=== PATIENT | male | born 1940 | race Caucasian/White ===

== ENCOUNTER 2018-01-15 22:16 | Emergency (ER) | payer OTHER, BC ==
[2018-01-15 23:36] LABS: ADD MAN DIFF? NO
[2018-01-15 23:42] LABS: BASOPHIL # 0.1 10^3/ul (0.0-0.1); BASOPHILS % 0.9 % (0.0-2.0); EOSINOPHILS # 0.7 10^3/ul (0.0-0.5); EOSINOPHILS % 6.8 % (0.0-7.0); HEMATOCRIT 36.5 % (42.0-52.0); LYMPHOCYTES # 2.1 10^3/ul (0.8-2.9); LYMPHOCYTES % 21.3 % (15.0-51.0); MEAN CORPUSCULAR HEMOGLOBIN 27.2 pg (29.0-33.0); MEAN CORPUSCULAR HGB CONC 32.9 g/dl (32.0-37.0); MEAN CORPUSCULAR VOLUME 82.8 fl (82.0-101.0); MEAN PLATELET VOLUME 9.5 fl (7.4-10.4); MONOCYTE # 0.8 10^3/ul (0.3-0.9); MONOCYTES % 8.3 % (0.0-11.0); NEUTROPHIL # 6.1 10^3/ul (1.6-7.5); NEUTROPHILS % 62.2 % (39.0-77.0); PLATELET COUNT 269 10^3/UL (140-415); RED BLOOD COUNT 4.41 10^6/ul (4.70-6.10); RED CELL DISTRIBUTION WIDTH 16.9 % (11.5-14.5)
[2018-01-15 23:42] LABS: WHITE BLOOD COUNT 9.9 10^3/ul (4.8-10.8)
[2018-01-15] MEDS: ONDANSETRON 4 MG INJ IV (23:46)
[2018-01-15] MEDS: morphine 4 MG/ML VIAL IV (23:48)
[2018-01-16 00:16] LABS: TROPONIN-I < 0.012 ng/ml (0.00-0.12)
[2018-01-16 00:21] LABS: ANION GAP 16 (8-16); BLOOD UREA NITROGEN 14 mg/dl (7-20); CALCIUM 9.8 mg/dl (8.4-10.2); CARBON DIOXIDE 29 mmol/L (21-31); CHLORIDE 104 mmol/L (97-110); CREATININE 0.76 mg/dl (0.61-1.24); GLUCOSE 120 mg/dl (70-220); POTASSIUM 3.8 mmol/L (3.5-5.1); SODIUM 145 mmol/L (135-144)
[2018-01-16 05:37] LABS: TROPONIN-I < 0.012 ng/ml (0.00-0.12)
[2018-01-16 06:30] LABS: TROPONIN-I < 0.012 ng/ml (0.00-0.12)
[2018-01-16 06:38] LABS: CK INDEX 1.2; CREATINE KINASE 34 IU/L (23-200)
== END 2018-01-16 06:30 | disposition home or self-care (01) ==
LOC: E/R 01-16 06:30
DX: R07.9 Chest pain, unspecified (principal); I10 Essential (primary) hypertension; E11.9 Type 2 diabetes mellitus without complications; Z98.61 Coronary angioplasty status; Z79.82 Long term (current) use of aspirin; Z79.84 Long term (current) use of oral hypoglycemic drugs
CPT/HCPCS: 36415; 71045; 80048; 82550; 82553; 84484; 85025; 93005; 96374; 96375; 99285-25

== ENCOUNTER 2018-09-18 13:27 | Observation (INO) | payer OTHER ==
[2018-09-18 14:33] LABS: ADD MAN DIFF? NO
[2018-09-18 14:38] LABS: BASOPHIL # 0.1 10^3/ul (0.0-0.1); BASOPHILS % 0.8 % (0.0-2.0); EOSINOPHILS # 0.5 10^3/ul (0.0-0.5); EOSINOPHILS % 5.7 % (0.0-7.0); HEMOGLOBIN 14.2 g/dl (14.0-18.0); LYMPHOCYTES # 1.8 10^3/ul (0.8-2.9); LYMPHOCYTES % 19.3 % (15.0-51.0); MEAN CORPUSCULAR HEMOGLOBIN 27.6 pg (29.0-33.0); MEAN CORPUSCULAR VOLUME 83.5 fl (82.0-101.0); MEAN PLATELET VOLUME 9.5 fl (7.4-10.4); MONOCYTES % 10.8 % (0.0-11.0); NEUTROPHIL # 5.9 10^3/ul (1.6-7.5); NEUTROPHILS % 62.9 % (39.0-77.0); PLATELET COUNT 302 10^3/UL (140-415); RED BLOOD COUNT 5.15 10^6/ul (4.70-6.10); RED CELL DISTRIBUTION WIDTH 14.7 % (11.5-14.5)
[2018-09-18 14:38] LABS: WHITE BLOOD COUNT 9.5 10^3/ul (4.8-10.8)
[2018-09-18 14:56] LABS: ANION GAP 13 (5-13); BLOOD UREA NITROGEN 25 mg/dl (7-20); CALCIUM 10.8 mg/dl (8.4-10.2); CARBON DIOXIDE 28 mmol/L (21-31); CHLORIDE 99 mmol/L (97-110); CREATININE 1.09 mg/dl (0.61-1.24); GLUCOSE 119 mg/dl (70-220); POTASSIUM 5.1 mmol/L (3.5-5.1); SODIUM 140 mmol/L (135-144)
[2018-09-18 15:07] LABS: TROPONIN-I < 0.012 ng/ml (0.000-0.120)
[2018-09-18] MEDS: IBUPROFEN 800 MG TAB PO (16:03)
[2018-09-18] MEDS ORDERED: ACETAMINOPHEN 325 MG TAB PO ×2 (16:30)
[2018-09-18] MEDS ORDERED: HYDROCODONE/APAP (5/325) TAB PO (16:30)
[2018-09-18] MEDS ORDERED: NACL 0.9% 3 ML SYG IV (16:30)
[2018-09-18] MEDS ORDERED: ONDANSETRON 4 MG INJ IV ×2 (16:30)
[2018-09-18] MEDS ORDERED: ALBUTEROL/IPRATROPIUM (NEB) 3 ML AMP HHN (17:00)
[2018-09-18] MEDS: SOD CHLORIDE 0.9% 1,000 ML IV (17:00)
[2018-09-18] MEDS ORDERED: LABETALOL HCL 20MG INJ IV (17:00)
[2018-09-18] MEDS ORDERED: NITROGLYCERIN (SL) 0.4 MG TAB (17:04)
[2018-09-18] MEDS: NITROGLYCERIN (SL) 0.4 MG TAB SL (17:14)
[2018-09-18] MEDS: morphine 2 MG INJ IV ×2 (17:17→21:28)
[2018-09-18] MEDS: ALPRAZOLAM 1 MG TAB PO (17:20)
[2018-09-18] MEDS: INSULIN ASPART [NOVOLOG] 3 ML PEN SC ×2 (18:00→21:00)
[2018-09-18] MEDS: METOPROLOL 100 MG TAB PO (18:36)
[2018-09-18] MEDS: AMLODIPINE 10 MG TAB PO (18:36)
[2018-09-18] MEDS ORDERED: GLUCAGON 1 MG INJ IM (19:00)
[2018-09-18] MEDS ORDERED: GLUCOSE GEL 15 GRAM TUBE PO ×2 (19:00)
[2018-09-18] MEDS ORDERED: GLUCOSE GEL 15 GRAM TUBE BUCCAL (19:00)
[2018-09-18] MEDS ORDERED: DEXTROSE 50% 50 ML SYRINGE IV ×2 (19:00)
[2018-09-18 19:50] LABS: CREATINE KINASE 34 IU/L (23-200)
[2018-09-18 20:04] LABS: CK INDEX 1.7; CK-MB 0.57 ng/ml (0.0-2.4); TROPONIN-I < 0.012 ng/ml (0.000-0.120)
[2018-09-18] MEDS ORDERED: HEPARIN 5,000 UNIT/0.5 ML VIAL (21:06)
[2018-09-18] MEDS: GABAPENTIN 300 MG CAP PO (21:23)
[2018-09-18] MEDS: QUETIAPINE 100 MG TAB PO (21:24)
[2018-09-18] MEDS: ATORVASTATIN 80 MG TAB PO (21:24)
[2018-09-18] MEDS: FAMOTIDINE 20 MG TAB PO (21:24)
[2018-09-18] MEDS: LAMOTRIGINE 100 MG TAB PO (21:27)
[2018-09-18] MEDS: HEPARIN 5,000 UNIT/1 ML VIAL SC (22:00)
[2018-09-18] MEDS: LIDOCAINE/MYLANTA 40 ML BTL PO (22:07)
[2018-09-19 00:18] LABS: TROPONIN-I < 0.012 ng/ml (0.000-0.120)
[2018-09-19] MEDS: ACCU-CHEK XX (02:00)
[2018-09-19 02:57] LABS: CREATINE KINASE 30 IU/L (23-200)
[2018-09-19 03:06] LABS: CK-MB 0.43 ng/ml (0.0-2.4)
[2018-09-19] MEDS: HEPARIN 5,000 UNIT/1 ML VIAL SC ×2 (06:00→13:46)
[2018-09-19 07:07] LABS: ADD MAN DIFF? NO
[2018-09-19 07:13] LABS: BASOPHIL # 0.1 10^3/ul (0.0-0.1); EOSINOPHILS # 0.5 10^3/ul (0.0-0.5); EOSINOPHILS % 6.7 % (0.0-7.0); HEMATOCRIT 41.3 % (42.0-52.0); HEMOGLOBIN 13.3 g/dl (14.0-18.0); MEAN CORPUSCULAR HGB CONC 32.2 g/dl (32.0-37.0); MEAN CORPUSCULAR VOLUME 83.9 fl (82.0-101.0); MEAN PLATELET VOLUME 9.6 fl (7.4-10.4); MONOCYTE # 0.9 10^3/ul (0.3-0.9); MONOCYTES % 12.5 % (0.0-11.0); NEUTROPHIL # 3.7 10^3/ul (1.6-7.5); NEUTROPHILS % 51.1 % (39.0-77.0); PLATELET COUNT 258 10^3/UL (140-415); RED BLOOD COUNT 4.92 10^6/ul (4.70-6.10); RED CELL DISTRIBUTION WIDTH 14.9 % (11.5-14.5)
[2018-09-19 07:13] LABS: WHITE BLOOD COUNT 7.2 10^3/ul (4.8-10.8)
[2018-09-19 07:35] LABS: HEMOGLOBIN A1C 6.5 % (0-5.9)
[2018-09-19 07:36] LABS: ALANINE AMINOTRANSFERASE 37 IU/L (13-69); ALBUMIN 4.2 g/dl (3.3-4.9); ALBUMIN/GLOBULIN RATIO 1.55; ALKALINE PHOSPHATASE 80 IU/L (42-121); ANION GAP 8 (5-13); ASPARTATE AMINO TRANSFERASE 29 IU/L (15-46); BILIRUBIN,INDIRECT 0.5 mg/dl (0-1.1); BILIRUBIN,TOTAL 0.5 mg/dl (0.2-1.3); BLOOD UREA NITROGEN 20 mg/dl (7-20); CALCIUM 10.3 mg/dl (8.4-10.2); CARBON DIOXIDE 30 mmol/L (21-31); CHLORIDE 103 mmol/L (97-110); CHOL/HDL RATIO 4.2 RATIO; CHOLESTEROL 132 mg/dl (100-200); GLUCOSE 119 mg/dl (70-220); HDL CHOLESTEROL 31 mg/dl (31-75); LDL CHOLESTEROL,CALCULATED 79 mg/dl; MAGNESIUM 1.8 mg/dl (1.7-2.5); POTASSIUM 4.5 mmol/L (3.5-5.1); SODIUM 141 mmol/L (135-144); TOTAL PROTEIN 6.9 g/dl (6.1-8.1); TRIGLYCERIDES 110 mg/dl (0-149)
[2018-09-19] MEDS: INSULIN ASPART [NOVOLOG] 3 ML PEN SC ×2 (07:43→11:50)
[2018-09-19] MEDS: BUSPIRONE 10 MG TAB PO (08:13)
[2018-09-19] MEDS: GABAPENTIN 300 MG CAP PO ×2 (08:13→12:21)
[2018-09-19] MEDS: CLOPIDOGREL 75 MG TAB PO (08:13)
[2018-09-19] MEDS: ASPIRIN 81 MG TAB PO (08:13)
[2018-09-19] MEDS: ISOSORBIDE MONONITRATE(SR)60 MG TAB PO (08:13)
[2018-09-19] MEDS: FAMOTIDINE 20 MG TAB PO (08:14)
[2018-09-19] MEDS: AMLODIPINE 10 MG TAB PO (08:14)
[2018-09-19] MEDS: METOPROLOL 100 MG TAB PO (08:14)
[2018-09-19] MEDS: CITALOPRAM 20 MG TAB PO (08:14)
[2018-09-19] MEDS: LAMOTRIGINE 100 MG TAB PO (08:14)
[2018-09-19] MEDS: FLUTICASONE/VILANTEROL 100-25 INH (08:15)
[2018-09-19] MEDS: REGADENOSON 0.4 MG/5 ML SYG (11:23)
[2018-09-19] MEDS: LORAZEPAM 2 MG INJ IV (12:21)
== END 2018-09-19 14:25 | disposition home or self-care (01) ==
LOC: E/R 13:27 → TEL 16:02
DX: R07.9 Chest pain, unspecified (principal); I25.10 Atherosclerotic heart disease of native coronary artery without angina pectoris; Z95.5 Presence of coronary angioplasty implant and graft; I10 Essential (primary) hypertension; E11.9 Type 2 diabetes mellitus without complications; F31.9 Bipolar disorder, unspecified; J44.9 Chronic obstructive pulmonary disease, unspecified; E78.5 Hyperlipidemia, unspecified; F41.9 Anxiety disorder, unspecified; E66.9 Obesity, unspecified; Z68.36 Body mass index [BMI] 36.0-36.9, adult; Z79.4 Long term (current) use of insulin; Z79.82 Long term (current) use of aspirin
CPT/HCPCS: 71045; 78452; 80048; 80053; 80061; 82550; 82553; 82962; 83036; 83735; 84443; 84484; 85025; 93005; 93017; 93306; 99285-25; G0378

== ENCOUNTER 2018-11-27 10:33 | Emergency (ER) | payer OTHER ==
[2018-11-27 11:21] LABS: ADD MAN DIFF? NO
[2018-11-27 11:24] LABS: WHITE BLOOD COUNT 9.7 10^3/ul (4.8-10.8)
[2018-11-27 11:24] LABS: BASOPHIL # 0.1 10^3/ul (0.0-0.1); BASOPHILS % 0.7 % (0.0-2.0); EOSINOPHILS # 0.5 10^3/ul (0.0-0.5); EOSINOPHILS % 4.8 % (0.0-7.0); HEMATOCRIT 39.2 % (42.0-52.0); HEMOGLOBIN 12.4 g/dl (14.0-18.0); LYMPHOCYTES # 1.5 10^3/ul (0.8-2.9); LYMPHOCYTES % 15.8 % (15.0-51.0); MEAN CORPUSCULAR HEMOGLOBIN 27.9 pg (29.0-33.0); MEAN CORPUSCULAR HGB CONC 31.6 g/dl (32.0-37.0); MEAN CORPUSCULAR VOLUME 88.3 fl (82.0-101.0); MEAN PLATELET VOLUME 9.6 fl (7.4-10.4); MONOCYTE # 1.2 10^3/ul (0.3-0.9); MONOCYTES % 12.1 % (0.0-11.0); NEUTROPHIL # 6.4 10^3/ul (1.6-7.5); NEUTROPHILS % 65.8 % (39.0-77.0); PLATELET COUNT 247 10^3/UL (140-415); RED BLOOD COUNT 4.44 10^6/ul (4.70-6.10); RED CELL DISTRIBUTION WIDTH 15.5 % (11.5-14.5)
[2018-11-27 11:44] LABS: INR 0.94; PROTIME 12.7 Sec (11.9-14.9)
[2018-11-27 11:45] LABS: ALANINE AMINOTRANSFERASE 24 IU/L (13-69); ALBUMIN 4.4 g/dl (3.3-4.9); ALBUMIN/GLOBULIN RATIO 1.51; ALKALINE PHOSPHATASE 77 IU/L (42-121); ANION GAP 13 (5-13); ASPARTATE AMINO TRANSFERASE 24 IU/L (15-46); BILIRUBIN,INDIRECT 0.1 mg/dl (0-1.1); BILIRUBIN,TOTAL 0.1 mg/dl (0.2-1.3); BLOOD UREA NITROGEN 33 mg/dl (7-20); CALCIUM 9.7 mg/dl (8.4-10.2); CARBON DIOXIDE 22 mmol/L (21-31); CHLORIDE 104 mmol/L (97-110); CREATININE 1.56 mg/dl (0.61-1.24); GLUCOSE 115 mg/dl (70-220); PARTIAL THROMBOPLASTIN TIME 25.7 Sec (23.0-35.0); SODIUM 139 mmol/L (135-144); TOTAL PROTEIN 7.3 g/dl (6.1-8.1)
[2018-11-27 11:46] LABS: POTASSIUM 5.4 mmol/L (3.5-5.1)
[2018-11-27 11:56] LABS: TROPONIN-I < 0.012 ng/ml (0.000-0.120)
[2018-11-27] MEDS: SOD CHLORIDE 0.9% 1,000 ML IV (12:47)
[2018-11-27] MEDS: CA CHLORIDE 10% 10 ML SYRINGE IV (12:47)
[2018-11-27] MEDS: NA POLYST SULFON 15 GM/60 ML BTL PO (12:47)
[2018-11-27] MEDS: NA BICARBONATE 8.4% 50 ML SYG IV (12:47)
[2018-11-27] MEDS: LORAZEPAM 2 MG INJ IV (12:51)
[2018-11-27] MEDS: ALBUTEROL 0.5% (NEB) 2.5 MG/0.5 ML AMP INH (13:19)
== END 2018-11-27 14:45 | disposition home or self-care (01) ==
LOC: E/R 10:33
DX: E87.5 Hyperkalemia (principal); I10 Essential (primary) hypertension; E11.9 Type 2 diabetes mellitus without complications; I25.10 Atherosclerotic heart disease of native coronary artery without angina pectoris; Z79.84 Long term (current) use of oral hypoglycemic drugs; Z79.01 Long term (current) use of anticoagulants
CPT/HCPCS: 76775; 80053; 84484; 85025; 85610; 85730; 93005; 94664; 96374; 96375; 99285-25

== ENCOUNTER 2019-04-04 09:36 | Emergency (ER) | payer OTHER ==
[2019-04-04 10:01] LABS: ADD MAN DIFF? NO
[2019-04-04 10:02] LABS: WHITE BLOOD COUNT 9.8 10^3/ul (4.8-10.8)
[2019-04-04 10:03] LABS: BASOPHIL # 0.1 10^3/ul (0.0-0.1); BASOPHILS % 0.6 % (0.0-2.0); EOSINOPHILS # 0.4 10^3/ul (0.0-0.5); EOSINOPHILS % 4.2 % (0.0-7.0); HEMOGLOBIN 12.8 g/dl (14.0-18.0); LYMPHOCYTES # 1.6 10^3/ul (0.8-2.9); LYMPHOCYTES % 16.3 % (15.0-51.0); MEAN CORPUSCULAR HGB CONC 32.8 g/dl (32.0-37.0); MEAN CORPUSCULAR VOLUME 88.4 fl (82.0-101.0); MONOCYTE # 1.2 10^3/ul (0.3-0.9); MONOCYTES % 12.1 % (0.0-11.0); NEUTROPHIL # 6.5 10^3/ul (1.6-7.5); NEUTROPHILS % 66.4 % (39.0-77.0); PLATELET COUNT 260 10^3/UL (140-415); RED BLOOD COUNT 4.41 10^6/ul (4.70-6.10); RED CELL DISTRIBUTION WIDTH 13.6 % (11.5-14.5)
[2019-04-04 10:23] LABS: ANION GAP 10 (5-13); BLOOD UREA NITROGEN 15 mg/dl (7-20); CALCIUM 9.8 mg/dl (8.4-10.2); CARBON DIOXIDE 24 mmol/L (21-31); CHLORIDE 103 mmol/L (97-110); GLUCOSE 126 mg/dl (70-220); SODIUM 137 mmol/L (135-144)
[2019-04-04 10:41] LABS: TROPONIN-I < 0.012 ng/ml (0.000-0.120)
== END 2019-04-04 12:20 | disposition home or self-care (01) ==
LOC: E/R 09:36
DX: D64.9 Anemia, unspecified (principal); I11.0 Hypertensive heart disease with heart failure; I50.9 Heart failure, unspecified; E11.9 Type 2 diabetes mellitus without complications; J44.9 Chronic obstructive pulmonary disease, unspecified; R63.0 Anorexia; Z63.4 Disappearance and death of family member; Z79.84 Long term (current) use of oral hypoglycemic drugs; Z87.891 Personal history of nicotine dependence
CPT/HCPCS: 36415; 80048; 84484; 85025; 99283

== ENCOUNTER 2019-06-03 02:58 | Emergency (ER) | payer OTHER ==
[2019-06-03 03:13] LABS: ADD MAN DIFF? NO
[2019-06-03 03:16] LABS: BASOPHIL # 0.1 10^3/ul (0.0-0.1); BASOPHILS % 0.7 % (0.0-2.0); EOSINOPHILS # 0.6 10^3/ul (0.0-0.5); EOSINOPHILS % 5.9 % (0.0-7.0); HEMATOCRIT 39.4 % (42.0-52.0); HEMOGLOBIN 12.6 g/dl (14.0-18.0); LYMPHOCYTES # 2.5 10^3/ul (0.8-2.9); LYMPHOCYTES % 25.2 % (15.0-51.0); MEAN CORPUSCULAR HEMOGLOBIN 28.6 pg (29.0-33.0); MEAN CORPUSCULAR VOLUME 89.5 fl (82.0-101.0); MEAN PLATELET VOLUME 9.2 fl (7.4-10.4); MONOCYTE # 0.9 10^3/ul (0.3-0.9); MONOCYTES % 8.9 % (0.0-11.0); NEUTROPHIL # 5.9 10^3/ul (1.6-7.5); NEUTROPHILS % 58.6 % (39.0-77.0); PLATELET COUNT 254 10^3/UL (140-415); RED CELL DISTRIBUTION WIDTH 14.5 % (11.5-14.5)
[2019-06-03 03:20] LABS: AADO2 Arterial 127.7 mmHg (7.0-24.0); Allen Test ACCEPTAB; Arterial Base Excess -4.6 mmol/L (-3.0-3); Arterial Blood Gas Oxygen Sat 89.5 mmHG (95.0-100.0); Arterial COHb 0.3 % (0.0-3.0); Arterial Fraction of Oxyhgb 89.1 % (93.0-99.0); Arterial HCO3 21.3 mmol/L (22.0-26.0); Arterial MetHb 0.2 % (0.0-1.5); Arterial pCO2 42.3 mmhg (35-45); MODE NASAL CANNULA; Site Left Radial
[2019-06-03] MEDS: ALBUTEROL 0.5% (NEB) 2.5 MG/0.5 ML AMP INH (03:25)
[2019-06-03] MEDS: IPRATROPIUM (NEB) 0.5 MG/2.5 ML AMP INH (03:26)
[2019-06-03] MEDS: METHYLPREDNISOLONE 125 MG INJ IV (03:30)
[2019-06-03 03:35] LABS: INR 1.04; PROTIME 13.7 Sec (11.9-14.9); PT RATIO 1.1
[2019-06-03 03:36] LABS: PARTIAL THROMBOPLASTIN TIME 28.1 Sec (23.0-35.0)
[2019-06-03 03:49] LABS: ALANINE AMINOTRANSFERASE 21 IU/L (13-69); ALBUMIN 4.4 g/dl (3.3-4.9); ALBUMIN/GLOBULIN RATIO 1.57; ALKALINE PHOSPHATASE 84 IU/L (42-121); ANION GAP 11 (5-13); ASPARTATE AMINO TRANSFERASE 17 IU/L (15-46); BILIRUBIN,INDIRECT 0.8 mg/dl (0-1.1); BILIRUBIN,TOTAL 0.8 mg/dl (0.2-1.3); BLOOD UREA NITROGEN 15 mg/dl (7-20); CALCIUM 9.7 mg/dl (8.4-10.2); CARBON DIOXIDE 26 mmol/L (21-31); CHLORIDE 100 mmol/L (97-110); CREATININE 1.24 mg/dl (0.61-1.24); GLUCOSE 138 mg/dl (70-220); POTASSIUM 4.4 mmol/L (3.5-5.1); SODIUM 137 mmol/L (135-144); TOTAL PROTEIN 7.2 g/dl (6.1-8.1)
[2019-06-03 04:00] LABS: B-TYPE NATRIURETIC PEPTIDE 323 PG/ML (0-450); TROPONIN-I < 0.012 ng/ml (0.000-0.120)
[2019-06-03] MEDS ORDERED: BISACODYL (EC) 5 MG TAB PO (04:30)
[2019-06-03] MEDS ORDERED: ACETAMINOPHEN 325 MG TAB PO ×2 (04:30)
[2019-06-03] MEDS ORDERED: DOCUSATE SODIUM 100 MG CAP PO (04:30)
[2019-06-03] MEDS ORDERED: NACL 0.9% 3 ML SYG IV (04:30)
[2019-06-03] MEDS ORDERED: ONDANSETRON 4 MG INJ IV ×2 (04:30)
[2019-06-03] MEDS: ALBUTEROL/IPRATROPIUM (NEB) 3 ML AMP HHN (05:00)
[2019-06-03] MEDS ORDERED: LEVOFLOXACIN 750MG/D5W (PMX) 150 ML IVPB (06:00)
[2019-06-03] MEDS ORDERED: PANTOPRAZOLE (EC) 40 MG TAB PO (06:00)
[2019-06-03] MEDS ORDERED: ALBUTEROL HFA 8 GM INHALER INH (06:00)
[2019-06-03] MEDS ORDERED: METHYLPREDNISOLONE 125 MG INJ IV (06:00)
[2019-06-03] MEDS ORDERED: ALBUTEROL 0.083% (NEB) 2.5 MG/3 ML AMP NEB (06:00)
[2019-06-03] MEDS ORDERED: HEPARIN 5,000 UNIT/1 ML VIAL SC (06:00)
[2019-06-03] MEDS ORDERED: LISINOPRIL 20 MG TAB PO (09:00)
[2019-06-03] MEDS ORDERED: ISOSORBIDE MONONITRATE(SR)60 MG TAB PO (09:00)
[2019-06-03] MEDS ORDERED: GABAPENTIN 300 MG CAP PO (09:00)
[2019-06-03] MEDS ORDERED: CITALOPRAM 20 MG TAB PO (09:00)
[2019-06-03] MEDS ORDERED: BUSPIRONE 5 MG TAB PO (09:00)
[2019-06-03] MEDS ORDERED: SPIRONOLACTONE 25 MG TAB PO (09:00)
[2019-06-03] MEDS ORDERED: LAMOTRIGINE 100 MG TAB PO (09:00)
[2019-06-03] MEDS ORDERED: AMLODIPINE 10 MG TAB PO (09:00)
[2019-06-03] MEDS ORDERED: QUETIAPINE 100 MG TAB PO (21:00)
[2019-06-03] MEDS ORDERED: ATORVASTATIN 80 MG TAB PO (21:00)
== END 2019-06-03 06:12 | disposition left against medical advice (07) ==
LOC: E/R 02:58
DX: J44.1 Chronic obstructive pulmonary disease with (acute) exacerbation (principal); I11.0 Hypertensive heart disease with heart failure; I50.9 Heart failure, unspecified; E11.9 Type 2 diabetes mellitus without complications; Z79.84 Long term (current) use of oral hypoglycemic drugs
CPT/HCPCS: 36415; 36600; 71045; 80053; 82803; 83605; 83880; 84484; 85025; 85610; 85730; 93005; 94644; 96374; 99285-25